=== PATIENT | male | born 1955 | race Asian ===

== ENCOUNTER 2017-10-28 08:50 | Outpatient (CLI) | END 2017-10-28 15:30 | disposition home or self-care (01) ==

== ENCOUNTER 2017-11-24 05:42 | Day surgery (SDC) | END 2017-11-24 15:10 | disposition home or self-care (01) ==

== ENCOUNTER 2017-12-09 13:52 | Outpatient (CLI) | END 2017-12-09 15:56 | disposition home or self-care (01) ==